=== PATIENT | female | born 1975 ===

== ENCOUNTER 2018-02-05 23:36 | Emergency (ER) | payer OTHER ==
[~2018-02-05] VITALS: Ht 162.6 cm; Wt 72.6 kg
[~2018-02-05 23:36] MED LIST: CEFTIN250 MG PO; DOLOGESIC CAPLE1 TAB PO; DULCOLAX STOOL100 MG PO; FIORICET 50-321 EACH PO; KETO10TA2 PO; NEURONTIN300 MG; NORFLEX PO; ORPH100T PO
[2018-02-06] MEDS ORDERED: CIPRO500 MG PO (08:45)
== END 2018-02-06 09:20 | disposition home or self-care (01) ==
LOC: ER 23:36
DX: G44.89 Other headache syndrome (principal); G43.809 Other migraine, not intractable, without status migrainosus; D64.89 Other specified anemias

== ENCOUNTER → 2018-03-20 | Emergency (ER) | payer OTHER ==
[~2018-03-20] VITALS: Ht 162.6 cm; Wt 72.6 kg
[~2018-03-20] MED LIST changes: +CIPRO500 MG PO; +SYNTHROID50 MCG; +TOPROL XL50 M1
== END | disposition home or self-care (01) ==
LOC: ER 17:07
DX: R07.89 Other chest pain (principal); F41.8 Other specified anxiety disorders